=== PATIENT | female | born 2000 | race Asian ===

== ENCOUNTER 2022-05-28 16:39 | Emergency (ER) | payer BC, SELFPAY ==
--- NOTE | 2022-05-28 16:59 | ED.FEMALEGU ---
HPI - Female Genitourinary General Chief complaint: Urogenital-Female Stated complaint: Poss UTI Time Seen by Provider: 05/28/22 17:00 Source: patient Mode of arrival: ambulatory Limitations: no limitations History of Present Illness HPI Narrative: Ed is a 21-year-old female patient presenting to the clinic today with complaints of possible urinary tract infection. She reports that she does get frequent urinary tract infections. States that she has had urinary frequency, urgency, and dysuria x2 days. She denies any fever, chills, abdominal pain, or flank pain. She denies any vaginal discharge. Last menstrual period was the 11th of this month Related Data Allergies Allergy/AdvReac Type Severity Reaction Status Date / Time corn Allergy Swelling Verified 05/28/22 16:58 of Lip/Tongue/Throat nut - unspecified Allergy Anaphylaxis Verified 05/28/22 16:58 pineapple Allergy Swelling Verified 05/28/22 16:58 of Lip/Tongue/Throat vancomycin Allergy Swelling Verified 05/28/22 16:58 watermelon Allergy Swelling Verified 05/28/22 16:58 of Lip/Tongue/Throat Review of Systems Review of Systems: Pertinent positives per HPI. Patient denies any fever, chills, rash, headache, visual changes, dizziness, cough, runny nose, sore throat, shortness of breath, chest pain, palpitations, nausea, vomiting, diarrhea, constipation, abdominal pain. PMFSH Comments At the time of my signature, I reviewed and agree with the nursing past medical, surgical, social, and family history. There is no relevant family history pertinent to the patient complaint. Exam Narrative: General: Well-developed, obese, in no apparent distress. Head: Normocephalic, atraumatic. Cardio: Regular rate and rhythm, s1 and s2 normal, no murmur appreciated. Resp: Clear to auscultation bilaterally, no rhonchi, rales, wheezing or rubs. Abdomen: Soft, pliable, bowel sounds present in all quadrants, non-tender to palpation, no organomegly, no CVAT tenderness. Course Course Emergency Course: Portions of this record may have been created with voice recognition software. Level of Care: Express Care Visit Vital Signs Vital signs: Vital signs reviewed MDM - Female Genitourinary MDM Narrative Medical decision making narrative: At the time of visit patient is resting comfortably on the exam table. Urinalysis was performed and showed 3+ leukocyte, 3+ blood, 3+ protein. Prescription for Bactrim DS was sent to the pharmacy. We will send urine for culture. Supportive measures were discussed with the patient she voiced understanding of discharge instructions. Recommend follow-up with her PCP and she states that she has an appointment with him on . Patient has 3+ protein so feel the necessary for her to get some kidney function labs. She voiced understanding Differential Diagnosis Differential diagnosis: Likely urinary tract infection and cystitis Discharge Plan Discharge Clinical Impression: Urinary tract infection Patient Disposition: Home, Self-Care Condition: Stable Instructions: Antibiotic Form, Urinary Tract Infection in Women (ED) Additional Instructions: UA positive for 3+ protein, 3+ blood, and 3+ leukocytes. We will send for culture Take Bactrim ds 1 tab every 12 hours x7 days Increase fluids and stay well hydrated Wipe front to back. May use wet wipes. Avoid tub baths If sexually active- pee before and after intercourse. Wear cotton panties Avoid tight clothing up against the genitals Follow up with your PCP in 1 week if symptoms persist. Go to the emergency room if symptoms worsen-increase in pain, high fever not controlled by Tylenol Motrin, altered mental status, lethargy, weakness, chest pain, shortness of breath, or abdominal pain Prescriptions: New sulfamethoxazole-trimethoprim [Bactrim DS] 800-160 mg tablet 1 tablet PO Q12H Qty: 14 0RF Follow-up/Referrals: UNKNOWN,DOCTOR
[2022-05-28 17:04] VITALS: BP 134/73; PULSE 73; RESP 16; TEMP 36.6; O2SAT 99
== END 2022-05-28 17:10 | disposition home or self-care (01) ==
PROVIDERS: Emergency Provider Nurse Practitioner Family
DX: N39.0 Urinary tract infection, site not specified (principal); Q87.81 Alport syndrome
CPT/HCPCS: 81003; 87086; 87088; 99203; G0463